=== PATIENT | male | born 1980 | race Caucasian/White ===

== ENCOUNTER 2016-07-30 15:41 | Inpatient (IN) | payer BC, OTHER ==
--- NOTE | ~2016-07-30 | CO ---
Unit #: [id number] #: [id number] Patient: JADON ADAIR [id number] [facility] [address]. [place], [place] [address] [id number] I MR#: [id number] NAME: JADON ADAIR ROOM: 318 Age: 36 Sex: M Admission Date: 07/30/2016 : 1980 Attending Physician: Carlos Veloz M.D. Primary Care Physician: Tanner Torrez M.D. Consultation Date: 07/31/2016 CONSULTATION REPORT CONSULTING PHYSICIAN Dr. Jorje Paul. REASON FOR CONSULT Occipital CVA. PATIENT IDENTIFICATION This is a 36-year-old right-handed male evaluated in room 318 at [facility]. SOURCE OF INFORMATION Obtained from the patient as well as the medical record. HISTORY OF PRESENT ILLNESS This is a 36-year-old right-handed male with a past medical history of hypertension, diabetes mellitus type 2, who presented to [facility] with complaints of headache, admitted for ischemic CVA and uncontrolled diabetes mellitus with a blood glucose of 677 on arrival. Patient states that he had an episode "at work" where he developed a headache and reports that he had flashing lights on the left side of his visual field while he was in a pressure-controlled room at work. He states that he continued to have a headache through the day and the next day he had noticed that he had peripheral visual field loss. This was, however, prior to the day of admission. He then presented on the day of admission with continued disturbance in the left peripheral visual field and underwent a MRI of the brain given his presentation which showed a 3 cm focal area of restricted diffusion in the parasagittal right occipital lobe involving the cortex and subcortical white matter characteristic of recent infarct or ischemia. There are also other subtle areas of restricted diffusion in the left frontal deep white matter but upon viewing the imaging with Dr. Mckinley personally, it looked like T2 shine through with no associated decreased (1) mapping. He has multifocal areas of punctate, increased T2 and FLAIR signal in the basal ganglia bilaterally, likely consistent with chronic ischemic changes. The patient reports persistent visual loss, reports his headache has improved. His blood sugars also improved. He denies exacerbating or alleviating factors or other associated speech or swallowing changes, focal weakness or paraesthesia, loss of consciousness, loss of awareness, shortness of air, chest pain, or palpitations. PAST MEDICAL HISTORY 1. Diabetes mellitus. 2. Hypertension. 3. Right hip surgery. Unit #: [id number] #: [id number] Patient: JADON ADAIR 4. The patient states that he was diagnosed with MS, that he saw a neurologist named Dr. Valderrama. Those records are not available. ALLERGIES No known drug allergies. HOME MEDICATIONS 1. Metformin. 2. Lisinopril. FAMILY HISTORY Positive for lung cancer and heart disease. SOCIAL HISTORY Positive for alcohol use. He denies abuse. He reports a remote history of drug use but reports he has not used drugs since early years. He denies ever using cocaine. He smokes about half pack per day of tobacco. REVIEW OF SYSTEMS A 12-point review of systems was done. Pertinent positives were as discussed above. PHYSICAL EXAMINATION VITAL SIGNS: Temperature 98.1. He has been afebrile. Pulse 80, respirations 18, blood pressure 138/101, oxygen saturation 97%. Height 5 feet 6 inches. Weight 200 pounds. BMI 32. NEUROLOGIC: He is awake, alert, and oriented to person, place, and time. No right/left confusion. No finger agnosia. General fund of knowledge is intact. CRANIAL NERVE: He demonstrates left temporal lower quadrant anopia. Extraocular movements are intact. Eyes are conjugate. Sensation of the face and scalp is equal. Strength of muscles of facial expression is equal. Hearing is intact to finger rub and conversation. Tongue is midline. Uvula is midline. Palate elevation is normal. Head turning and shoulder shrug is unremarkable. Neck is supple. MOTOR: Demonstrates normal bulk and tone. Strength is equal, 5/5 in all extremities. SENSORY: Intact to soft touch and pinprick sensation. GAIT: Normal. Romberg deferred. REFLEXES: A 1/4 toes are equivocal. COORDINATION: Unremarkable. DIAGNOSTIC STUDIES LABORATORY: Troponin 0.13 with a 0.14 max. Hemoglobin A1c 11.8. Sodium 135, potassium 3.4, chloride 102, CO2 of 28, glucose 349, BUN 25, creatinine 1.1, estimated GFR above 60. Cholesterol 199, triglycerides 152, LDL 138, HDL 31. White blood cell count 11, hemoglobin 14.7, hematocrit 42.2, platelet count 277,000. IMAGING: MRI of the brain: Please see above. CARDIOVASCULAR: EKG: Normal sinus rhythm, rightward axis. T-wave abnormality. Prolonged QT, per cardiology report on July 31, 2016. IMPRESSION 1. Acute to subacute right INFORMATION ENGINEER territory ischemic cerebrovascular accident with left lower quadrant anopia. 2. Left frontal deep white matter lesions, questionable past infarct. Unit #: [id number] #: [id number] Patient: JADON ADAIR 3. The patient states that he has right hemiparesis in the past about a year ago that lasted for about three days. He states that he saw his neurologist at that time but he does not have any further details or records. 4. Uncontrolled diabetes mellitus type 2. 5. Tobacco use. 6. Hypertension. PLAN Recommend a transesophageal echocardiogram and CT angiogram to look for etiology of stroke. Recommend stroke workup (2) . The patient has elevated LDL of 138, recommend statin. We have started the patient on Plavix. Further recommendations to be made pending workup and further clinical course. Please call for any questions or issues. Case discussed with Dr. Mckinley who saw the patient as well. Will follow along with you. Please call for any questions or issues. Thank you very much for allowing us to assist in the care of this patient. Dictated by... Petra Shaw A.P.R.N. for Adrian Armenta/saida TD: 08/01/2016 15:47 JOB #: [id number] CONSULTATION REPORT X Petra Shaw APRN X CONSULTATION REPORT
--- NOTE | ~2016-07-30 | MR18 ---
[facility] A Service of [facility] RADIOLOGY TEXT RESULTS PATIENT: JADON ADAIR LOCATION: C3A 318-01 : [birth year] UNIT #: [id number] AGE: [address]: Carlos Veloz MD SEX: M ORDER DR: [id number] [facility] [address] [place], [place] [address] [id number] I MR#: [id number] Acc #: [id number] NAME: JADON ADAIR : 1980 SEX: M STUDY DATE/TIME: 07/30/2016 17:41 UNIT: CEDOF ROOM: 77208 STUDY DESCRIPTION: MR Brain Wo Contrast Attending Physician: Donna Paul M.D. Ordering Physician: Kaia Guerrero Pa-C Primary Care Physician: Tanner Torrez M.D. MRI CENTER REPORT This report is preliminary unless electronic signature is present. EXAM MRI brain without contrast HISTORY Dizzy and blurred vision, onset 2 days ago. Loss of peripheral vision left eye. FINDINGS MRI brain was performed without contrast. There is a focal area of restricted diffusion in the medial right occipital lobe, involving cortex and subcortical white matter, measuring nearly 3 cm in maximal dimension, suspicious for acute infarct. I called this finding to the patient's nurse practitioner, Kaia, at the time of this dictation. There are also more subtle areas of restricted diffusion in the left frontal deep white matter, which measure less than 1 cm, and could be additional areas of recent ischemia or infarct. Several punctate foci of increased T2 and FLAIR signal in the bilateral basal ganglia, which could be secondary to chronic ischemic changes, with additional considerations including demyelinating disease or vasculitis. No midline shift or ventricular dilatation, focal atrophy or extraaxial fluid collection. There is opacification of the right maxillary sinus with mucosal thickening and fluid. IMPRESSION 1. 3 cm focal area of restricted diffusion in the parasagittal right occipital lobe involving cortex and subcortical white matter, characteristic of recent infarct or ischemia. 2. There are subtle areas of restricted diffusion, subcentimeter, in the left frontal deep white matter which could be additional recent ischemia or infarcts. 3. Multifocal areas of punctate increased T2 and FLAIR signal in the basal ganglia bilaterally. Considerations include chronic ischemic STS. [facility] A Service of [facility] RADIOLOGY TEXT RESULTS PATIENT: JADON ADAIR LOCATION: C3A 318-01 : [birth year] UNIT #: [id number] AGE: [address]: Carlos Veloz MD SEX: M ORDER DR: changes, or demyelinating disease or vasculitis in the appropriate clinical context. 4. No midline shift or ventricular dilatation. 5. I called the acute findings to the patient's nurse practitioner at the time of this dictation. Dictated by... Jose Dumont M.D. THIS IS AN ELECTRONICALLY VERIFIED REPORT Jose Dumont M.D. at 07/31/2016 2:15 PM DFL/psc TD: 07/30/2016 22:58 JOB #: [id number] MRI CENTER REPORT COPY
--- NOTE | ~2016-07-30 | HP ---
Unit #: [id number] #: [id number] Patient: JADON ADAIR [id number] [address] [place], [place] [address] [id number] I MR#: [id number] NAME: JADON ADAIR ROOM: 67663 Age: 36 Sex: M Admission Date: 07/30/2016 : 1980 Attending Physician: Donna Paul M.D. Primary Care Physician: Tanner Torrez M.D. HISTORY AND PHYSICAL CHIEF COMPLAINT Headache. HISTORY OF PRESENT ILLNESS The patient is a 36-year-old male with a history of hypertension and diabetes uncontrolled, brought to the emergency room complaining of headache for the last two days. The patient stated the patient has a headache, tension type, and is not like the usual migraine-type of headache. The patient also complains of a throbbing headache with loss of vision on the left side lateral peripheral field. The patient stated the patient started loss of the peripheral vision since yesterday afternoon. The patient had MRI of the brain that showed the patient's occipital lobe and ischemic areas in the basal ganglia and the left internal capsule. The patient's sugar was found to be in 600's and patient is being admitted for the above reasons. The patient denies any fever, chills, nausea or vomiting. The patient denies any chest pain, palpitations, short of breath. The patient stated the patient is not checking his sugars at home and the sugar was found to be 677 in the hospital. PAST MEDICAL HISTORY 1. History of diabetes, uncontrolled. 2. Hypertension. PAST SURGICAL HISTORY History of right hip surgery. HOME MEDICATIONS He is on: 1. Metformin. 2. Lisinopril. ALLERGIES No known drug allergies. SOCIAL HISTORY Positive for alcohol, drinking. Smokes half a pack of cigarettes daily. FAMILY HISTORY Positive for the lung cancer in the family and heart disease in the family. REVIEW OF SYSTEMS Fourteen point review of systems was performed and only pertinent positive findings are described above, remaining are negative. Unit #: [id number] #: [id number] Patient: JADON ADAIR PHYSICAL EXAMINATION GENERAL: The patient is lying on the bed, not in acute distress. VITALS: Temperature is 98.7, pulse 99, respiratory rate 16, blood pressure 143/87, sat'ing 100% at room air. HEAD: Atraumatic, normocephalic. EENT: Pupils equal, round, reactive to light and accommodation. Extraocular movements are intact. The patient has loss of left peripheral vision and patient has a complete hemianopsia of the left side. HEART: Regular rate and rhythm. ABDOMEN: Soft. Positive bowel sounds. NECK: Supple. No JVD. LUNGS: Decreased air entry at the bases. EXTREMITIES: No cyanosis, no clubbing. NEUROLOGICAL: The patient has equal strength. However, the patient has loss of the left peripheral vision and a left hemianopsia. PSYCH: Mood and affect are appropriate. DIAGNOSTIC STUDIES LABORATORY DATA: Glucose 677, BUN 31, creatinine 1.6, sodium 123, potassium 3.4, chloride 89, bicarb 23, calcium 8.6, AST 16, ALT 19, alkaline phosphatase 79, WBC 13.6, hemoglobin 16.1, hematocrit 46.3, platelets 293. UA shows more than 1000 glucose. IMAGING: MRI of the brain shows the occipital lobe infarct and infarct in the basal ganglia and left internal capsule. CARDIOVASCULAR: There is no EKG done. The patient has received only aspirin 81 mg and neurology has not been contacted. ASSESSMENT AND PLAN 1. Occipital cerebrovascular accident with ischemic areas in the basal ganglia and the left internal capsule. 2. Headaches. 3. Hyponatremia. 4. Hypokalemia. 5. Uncontrolled diabetes. Plan is to admit the patient to inpatient with telemetry. The patient will have a neuro consult with Dr. Mckinley for occipital CVA and the ischemic areas in the basal ganglia in the left internal capsule. The patient will be on high dose sliding scale and check the GAUTAM in the morning and serial troponins. Will check the lipid profile and hemoglobin A1c in the a.m. Further recommendations will follow as more lab results are available. Dictated by Adrian Campos Unit #: [id number] #: [id number] Patient: JADON ADAIR TD: 07/31/2016 06:03 JOB #: [id number] HISTORY AND PHYSICAL X X HISTORY AND PHYSICAL
--- NOTE | ~2016-07-30 | EKG ---
PATIENT: JADON ADAIR UNIT #: [id number] Ventricular Rate: 74 BPM Atrial Rate: 74 BPM P-R Interval: 168 ms QRS Duration: 116 ms Q-T Interval: 416 ms QTC Calculation(Bezet): 461 ms P [place]: 50 degrees Calculated R [place]: 73 degrees Calculated T [place]: 93 degrees Diagnosis Line: Normal sinus rhythm Diagnosis Line: T wave abnormality, consider anterolateral Diagnosis Line: ischemia Diagnosis Line: Prolonged QT Diagnosis Line: Abnormal ECG Diagnosis Line: When compared with ECG of 31-JUL-2016 07:14, Diagnosis Line: No significant change was found Diagnosis Line: Confirmed by NIRALI COTE MD ([id number]) on 08/02/2016 Diagnosis Line: 6:08:15 PM INTERPRETING MD: ROCAEL GARIBAY
--- NOTE | ~2016-07-30 | MR134 ---
[facility] A Service of [facility] RADIOLOGY TEXT RESULTS PATIENT: JADON ADAIR LOCATION: [facility] : [birth year] UNIT #: [id number] AGE: [address]: Carlos Veloz MD SEX: M ORDER DR: [id number] [facility] [address] [place], [place] [address] [id number] I MR#: [id number] Acc #: [id number] NAME: JADON ADAIR : 1980 SEX: M STUDY DATE/TIME: 08/01/2016 18:18 UNIT: C3A PCU ROOM: [facility] STUDY DESCRIPTION: MR MRA Neck Wo Contrast Attending Physician: Carlos Veloz M.D. Ordering Physician: Ju Mckinley M.D. Primary Care Physician: Tanner Torrez M.D. MRI CENTER REPORT This report is preliminary unless electronic signature is present. EXAM Cervical carotid MR angiogram, 08/01/2016 HISTORY Occipital infarct on 07/30/2016 TECHNIQUE Angiograph imaging was performed through the cervical carotid distribution utilizing 2-D tetg-or-vfdszz and 3-D MRA techniques. FINDINGS The great vessels are patent off the arch. Antegrade flow seen in both vertebral arteries and the vertebrals are approximately the same size. Both bifurcations are widely patent. There is no evidence of stenosis by NASCET criteria and no flow disturbance is seen. IMPRESSION Normal. Dictated by... Timmy Alcocer M.D. THIS IS AN ELECTRONICALLY VERIFIED REPORT Timmy Alcocer M.D. at 08/02/2016 5:48 AM ERNESTO/axel TD: 08/01/2016 23:57 JOB #: [id number] MRI CENTER REPORT [facility] A Service [facility] RADIOLOGY TEXT RESULTS PATIENT: JADON ADAIR LOCATION: [facility] : [birth year] UNIT #: [id number] AGE: [address]: Carlos Veloz MD SEX: M ORDER DR: CLIFF
--- NOTE | ~2016-07-30 | MR122 ---
[facility] A Service of [facility] RADIOLOGY TEXT RESULTS PATIENT: JADON ADAIR LOCATION: [facility] : [birth year] UNIT #: [id number] AGE: [address]: Carlos Veloz MD SEX: M ORDER DR: [id number] [facility] [address] [place], [place] [address] [id number] I MR#: [id number] Acc #: [id number] NAME: JADON ADAIR : 1980 SEX: M STUDY DATE/TIME: 08/01/2016 18:07 UNIT: [address] ROOM: [facility] STUDY DESCRIPTION: MR MRA Head Wo Contrast Attending Physician: Carlos Veloz M.D. Ordering Physician: Ju Mckinley M.D. Primary Care Physician: Tanner Torrez M.D. MRI CENTER REPORT This report is preliminary unless electronic signature is present. EXAM Intracranial MR angiogram HISTORY Occipital infarct on 07/30/2016. TECHNIQUE MR angiographic imaging was performed from the skull base to the [place] of [place]. FINDINGS In the posterior circulation, both vertebral arteries are patent distally, with the right larger than left. The basilar artery is widely patent. No posterior cerebral artery occlusive disease is seen. In the anterior circulation, both carotid siphons are widely patent. There is no evidence of aneurysm, vascular malformation or major branch vessel occlusion. As a normal variant, the right A1 segment is hypoplastic and both anterior cerebral arteries fill predominantly from the left. IMPRESSION Normal. Dictated by... Timmy Alcocer M.D. THIS IS AN ELECTRONICALLY VERIFIED REPORT Timmy Alcocer M.D. at 08/02/2016 5:48 AM RLF/irving TD: 08/01/2016 23:54 [facility] A Service of [facility] RADIOLOGY TEXT RESULTS PATIENT: JADON ADAIR LOCATION: [facility] : [birth year] UNIT #: [id number] AGE: [address]: Carlos Veloz MD SEX: M ORDER DR: JOB #: [id number] MRI CENTER REPORT COPY
--- NOTE | ~2016-07-30 | EKG ---
PATIENT: JADON ADAIR UNIT #: [id number] Ventricular Rate: 83 BPM Atrial Rate: 83 BPM P-R Interval: 158 ms QRS Duration: 104 ms Q-T Interval: 430 ms QTC Calculation(Bezet): 505 ms P [place]: 58 degrees Calculated R [place]: 102 degrees Calculated T [place]: 130 degrees Diagnosis Line: Normal sinus rhythm Diagnosis Line: Rightward axis Diagnosis Line: T wave abnormality, consider anterolateral Diagnosis Line: ischemia Diagnosis Line: Prolonged QT Diagnosis Line: Abnormal ECG Diagnosis Line: No previous ECGs available Diagnosis Line: Confirmed by VICTOR MANUEL WU MD ([id number]) on Diagnosis Line: 07/31/2016 2:56:32 PM INTERPRETING MD: BRYCE GARIBAY
--- NOTE | ~2016-07-30 | CO ---
Unit #: [id number] #: [id number] Patient: JADON ADAIR [id number] [address] [place], [place] [address] [id number] I MR#: [id number] NAME: JADON ADAIR ROOM: 318 Age: Sex: M Admission Date: 07/30/2016 : 1980 Attending Physician: Carlos Veloz M.D. Primary Care Physician: Tanner Torrez M.D. CONSULTATION REPORT REASON FOR CONSULT Management of diabetes mellitus, uncontrolled. HISTORY OF PRESENT ILLNESS A 36-year-old male who has a history of hypertension, diabetes mellitus, presented to the emergency room for a chief complaint of headaches of two days duration which are persistent associated with some vision loss. He had MRI brain which showed a 3 cm focal area of recent infarct in the occipital lobe. On his admission, his blood glucose was over 600. The patient reports he checks only when he is not feeling well. His A1C is 11.8. He takes Metformin at home. PAST MEDICAL HISTORY Type 2 diabetes mellitus, hypertension. PAST SURGICAL HISTORY Right hip surgery. SOCIAL HISTORY Positive for alcohol drinking. He smokes a half pack per day. FAMILY HISTORY Positive for lung cancer. ALLERGIES No known drug allergies. MEDICATIONS 1. Metformin. 2. Lisinopril. REVIEW OF SYSTEMS A 10-point review of systems is completed. No chest pain, palpitation. No shortness of air. No cough with sputum. No (1) frequency, dysuria. No nausea, vomiting, abdominal pain. A 10-point review of systems was unremarkable. PHYSICAL EXAMINATION GENERAL APPEARANCE: Awake, alert, oriented to time, place and person. VITAL SIGNS: Temperature 98.1. Pulse 85. Blood pressure 138/101. HEENT: EOMI. Pupils equal and reactive to light. NECK: Supple. No thyromegaly noted. CHEST: Good air entry. Unit #: [id number] #: [id number] Patient: JADON ADAIR CARDIOVASCULAR: Regular rhythm. No murmurs. ABDOMEN: Soft, nontender. Bowel sounds positive. EXTREMITIES: No edema. Ulcers are noted. DIAGNOSTIC STUDIES LABORATORY: Labs were reviewed. Glucose 349, creatinine 1.1, potassium 3.4. A1C is 11.8. LDL is 138. Hemoglobin 14.7, hematocrit 42.2. ASSESSMENT 1. Type 2 diabetes mellitus poorly controlled. 2. CVA occipital lobe. 3. Hypertension. PLAN 1. I will start the patient on Levemir 13 units at bedtime. 2. NovoLog 10 units each meal plus cover with supplemental insulin as needed. 3. Get a Nutrition consult. Thanks again for consultation. We will continue to follow the patient for further insulin adjustments. Dictated by... Adrian Mayen/ana TD: 08/01/2016 09:10 JOB #: [id number] CONSULTATION REPORT X Luis Bucio MD X CONSULTATION REPORT
--- NOTE | ~2016-07-30 | DS ---
Unit #: [id number] #: [id number] Patient: JADON ADAIR [id number] [facility] [address] [facility] [place], [place] [address] [id number] I MR#: [id number] NAME: JADON ADAIR ROOM: 318 Age: 36 Sex: M Admission Date: 07/30/2016 : 1980 Discharge Date: 08/03/2016 Attending Physician: Carlos Veloz M.D. Primary Care Physician: Tanner Torrez M.D. DISCHARGE SUMMARY REASON FOR ADMISSION Please see H and P for complete details of initial part of hospital course. Patient was subsequent admitted secondary to occipital CVA. Consultation was placed in neurology services and followed the patient through hospital course. 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 They followed the patient throughout, patient also underwent 2D echocardiogram as well as GAUTAM and did not show any embolic etiology. The patient also had a prior history of type 1 diabetes, very poorly controlled hemoglobin A1c greater than 11%. Endocrinology services were consulted. Dr. Bucio followed patient throughout. Cardiology services were also consulted. [facility] cardiology followed the patient throughout his hospital course. Ejection fraction was noted to be 60% on GAUTAM. Cardiac catheterization was recommended secondary to high risk factors including poorly controlled diabetes, tobacco abuse, as well as CVA. The patient underwent cardiac catheterization yesterday, which revealed severe three vessel disease. From a cardiac standpoint, Dr. Kumar felt as though since he was asymptomatic he could be discharged to home with stent placement, perhaps to reschedule in the next one to two weeks. He does have a followup appointment on , 08/17/2016 at 1:[address] Kumar. At that point time, if cleared by neurology services for stent placement, catheterization will be performed. At the present time he is currently stable, appears stable to be discharged home. Will discharge him home with a close outpatient followup. FINAL DISCHARGE DIAGNOSES 1. Acute/subacute cerebrovascular accident occipital region. 2. Visual/peripheral visual loss on the left eye. 3. Diabetes type 2, poorly controlled. 4. Severe three vessel disease. 5. Coronary artery disease. 6. Tobacco abuse. 7. Poorly controlled hypertension. FINAL DISCHARGE MEDICATIONS 1. Metformin 500 mg p.o. daily. 2. Tylenol 650 mg p.o. q.6 p.r.n. 3. NovoLog 6 units t.i.d. with meals. 4. Plavix 75 mg p.o. daily. Unit #: [id number] #: [id number] Patient: JADON ADAIR 5. Sublingual nitro as directed. 6. Lopressor 50 mg p.o. b.i.d. 7. Lasix 20 mg p.o. daily. 8. Lipitor 80 mg p.o. q.h.s. 9. Zestril 20 mg p.o. daily. 10. Levemir 40 units subcu b.i.d. DISCHARGE CONDITION Stable. DISCHARGE DISPOSITION Home. FOLLOWUP Dr. Cecily Alvarez at [facility], , in approximately seven to ten days. Dictated by... Adrian Colin/sumi TD: 08/04/2016 11:59 JOB #: [id number] DISCHARGE SUMMARY X Risa Wing MD X DISCHARGE SUMMARY
--- NOTE | ~2016-07-30 | CO ---
Unit #: [id number] #: [id number] Patient: JADON ADAIR [id number] [address] [place], [place] [address] [id number] MR#: [id number] NAME: JADON ADAIR ROOM: 318 Age: 36 Sex: M Admission Date: 07/30/2016 : 1980 Attending Physician: Carlos Veloz M.D. Primary Care Physician: Tanner Torrez M.D. CONSULTATION REPORT REASON FOR CONSULTATION Elevated troponin. HISTORY OF PRESENT ILLNESS This is a 36-year-old white male who was admitted with left sided weakness, flashes of light and loss of peripheral vision. He has been complaining of headache which he thought was a migraine. There was no slurred speech or unilateral weakness. He came in to the emergency room for evaluation where he was found to have an occipital infarct. There was elevation of his blood pressure of 157/113 mmHg. He has known hypertension for the past 20 years. Has been diagnosed with diabetes ten years ago. He does drink on occasion and smokes daily. He thinks he is reasonably active where he has no symptoms of angina. His troponin elevated at 0.14. Electrocardiogram shows anterolateral ischemic changes. PAST MEDICAL HISTORY 1. Hypertension. 2. Diabetes mellitus type 2. 3. Nicotine abuse. 4. Occasional ETOH use. PAST SURGICAL HISTORY Right hip surgery. SOCIAL HISTORY The patient works at [employer]. He states he is reasonably active on his job where he has no symptoms of angina. He smokes a half pack of cigarettes daily since he was a teenager. Drinks alcohol on occasion socially. No illicit drug use. FAMILY HISTORY Parents and siblings have no heart disease; however, he has grandparents who have coronary artery disease. ALLERGIES No known drug allergies. HOME MEDICATIONS 1. Metformin 500 mg b.i.d. 2. Lisinopril, unknown dose. REVIEW OF SYSTEMS CONSTITUTIONAL: Negative for fever or chills. Reports no weight gain or weight loss. Unit #: [id number] #: [id number] Patient: JADON ADAIR HEENT: Positive for headache. No difficulty with swallowing. Reports visual disturbances. CARDIOVASCULAR: Has no symptoms of angina. Denies palpitations. No paroxysmal nocturnal dyspnea or orthopnea. Denies syncope or near syncope. RESPIRATORY: Negative for dyspnea, cough or hemoptysis. GASTROINTESTINAL: No abdominal pain, nausea or vomiting. No constipation or melena. EXTREMITIES: Negative for lower extremity edema. PHYSICAL EXAMINATION VITAL SIGNS: Blood pressure 150/107, heart rate 78, temperature 98.1, BMI 32. GENERAL: This is a pleasant, obese, 36-year-old white male who is in no acute respiratory distress. NEUROLOGICAL: He is awake, alert and oriented. There are no motor deficits. Has loss of left peripheral vision. HEART: S1, S2 heart sounds are normal. No murmurs, rubs or clicks. Regular rate and rhythm. ABDOMEN: Soft, nontender with bowel sounds present. EXTREMITIES: Without leg edema. SKIN: Warm and dry. DIAGNOSTIC STUDIES LABORATORY: Glucose 349, BUN 25, creatinine 1.1, sodium 135, potassium 3.4. CK total 22, troponin 0.12 to 0.14 to 0.13. Cholesterol 199, triglycerides 152, LDL 138, HDL 31. White count 11.0, hemoglobin 14.7, hematocrit 42.2, platelet count 277. IMAGING: Chest x-ray shows no active disease. MRI of the brain shows 3 cm focal area in the parasagittal right occipital lobe characteristic of recent infarct or ischemia. CARDIOVASCULAR: Electrocardiogram shows normal sinus rhythm, rate 83 beats per minute with right axis deviation. There is left atrial enlargement and anterolateral ischemic changes. IMPRESSION 1. Occipital infarct secondary to cerebrovascular accident. 2. Poorly controlled diabetes mellitus. 3. Poorly controlled hypertension. 4. Probable coronary artery disease with anterolateral ischemia. 5. Nicotine abuse. 6. Obesity. PLAN 1. Cardiology was consulted for elevated troponin. Repeat cardiac enzymes, troponin and electrocardiogram. 2. The patient may need a cardiac catheterization to evaluate coronary artery disease. 3. Will obtain 2D echocardiogram to evaluate left ventricular systolic function. 4. Antiplatelet therapy when allowed by neurology. 5. Control blood pressure with addition of metoprolol and decrease dose of lisinopril and addition of diuretic with hydrochlorothiazide. 6. Start on statin because of elevated LDL and possible coronary artery disease. 7. Will treat with aspirin. Unit #: [id number] #: [id number] Patient: JADON ADAIR 8. Control diabetes. 9. Will follow the patient with you. Thank you for allowing us to assist with this patient's care. Dictated by... Travon Yepez A.P.R.N. for Adrian Lawson/brie TD: 08/01/2016 09:12 JOB #: [id number] CONSULTATION REPORT X Travon Yepez APRN X CONSULTATION REPORT
--- NOTE | ~2016-07-30 | CR63 ---
[facility] A Service of [facility] & [facility] RADIOLOGY TEXT RESULTS PATIENT: JADON ADAIR LOCATION: [facility] 318- : [birth year] UNIT #: [id number] AGE: [address]: Carlos Veloz MD SEX: M ORDER DR: [id number] [facility] [address] [place], [place] [address] [id number] MR#: [id number] Acc #: [id number] NAME: JADON ADAIR : 1980 SEX: M STUDY DATE/TIME: 07/31/2016 12:59 UNIT: [address] ROOM: [facility] STUDY DESCRIPTION: CR Chest 2 View Attending Physician: Carlos Veloz M.D. Ordering Physician: Trey Kumar M.D. Primary Care Physician: Tanner Torrez M.D. MEDICAL IMAGING REPORT This report is preliminary unless electronic signature is present EXAM PA and lateral chest 07/31/2016 INDICATIONS 36-year-old male with shortness of breath since yesterday. COMPARISON STUDIES No comparisons. FINDINGS The lungs are well expanded and clear. Heart size normal. Visualized osseous structures unremarkable. IMPRESSION Negative chest. Dictated by... Pepe Nice M.D. THIS IS AN ELECTRONICALLY VERIFIED REPORT Pepe Nice M.D. at 08/01/2016 7:59 AM PHILLIP/rylee TD: 07/31/2016 16:51 JOB #: [id number] MEDICAL IMAGING REPORT COPY
--- NOTE | ~2016-07-30 | A ---
[facility] Nutrition Therapy DATE: 08/01/16 Patient: JADON ADAIR Physician: KIERAN Address: [address] Room/Bed: [address] [place] [address], Zip: [place] [address] Admit Date: 07/30/16 Date of : [birth year] Height: 5 6 Weight: 197 89.4 NUTRITIONAL ASSESSMENT: REASON: CONSULT RE: DIET EDUCATION PT IS 36 Y.O. MALE ADMITTED FOR OCCIPTIAL CVA HT: 5'6", WT: 220# (100 KG), BMI: 35.5 RD PROVIDED WRITTEN AND VERBAL CC DIET EDUCATION. RD PROVIDED LIST OF FOODS TO AVOID/LIMIT AND FOODS TO EAT MORE OFTEN. RD ALSO EMPHASIZED IMPORTANCE OF CONSISTENT MEAL PATTERN DAILY. PT REPORTS SKIPPING BREAKFAST AND CONSUMES ONLY [address] PROVIDED HEALTHY BREAKFAST OPTIONS AND BRAINSTORMED WAYS TO INCORPORATE BREAKFAST INTO HIS DAILY ROUTINE. PT ALSO REPORTS DRINKING A "LOT OF ENERGY DRINKS". RD PROVIDED HEALTHIER LOW-CALORIE DRINK OPTIONS. PT VERBALIZED UNDERSTANDING OF THE TOPIC AND REPORTED NO DIET QUESTIONS AT THIS TIME. RD TO REMAIN AVAILABLE. Recommendations: 1. ENCOURAGE COMPLIANCE OF CURRENT DIET ORDER ORDER-CC RD WILL F/U PER PROTOCOL Respectfully, ABEL ROQUE MS, RD, LD [employer] cc: client file
[~2016-07-30 15:41] MED LIST: GLUCOPHAGE500 MG PO
[2016-07-30 16:02] LABS: BASOPHIL# 0.1 X10e3 (0-0.3); BASOPHIL% 0.4 % (0-2.5); EOSINOPHIL% 0.3 % (0.0-7.0); HEMATOCRIT 46.3 % (38.0-50.0); HEMOGLOBIN 16.1 gm/dL (13.0-16.0); LYMPHOCYTE# 2.7 X10e3 (1.0-3.5); LYMPHOCYTE% 19.8 % (17.0-45.0); MEAN CELL VOLUME 88.7 FL (83-96); MEAN CORPUSCULAR HEMOGLOBIN 30.8 PG (28-34); MEAN CORPUSCULAR HGB CONC 34.7 g/dL (30-36); MEAN PLATELET VOLUME 8.4 FL (6.5-11.5); MONOCYTE# 1.4 X10e3 (0-1.0); MONOCYTE% 10.4 % (3.0-12.0); NEUTROPHIL# 9.4 X10e3 (1.5-7.1); NEUTROPHIL% 69.1 % (40-75); PLATELET COUNT 293 X10e3 (140-420); RED BLOOD COUNT 5.22 X10e (3.90-5.60); RED CELL DISTRIBUTION WIDTH 12.6 % (11.0-15.5); WHITE BLOOD COUNT 13.6 X10e3 (4.0-10.5)
[2016-07-30 16:04] LABS: DIFF IND NO
[2016-07-30 16:25] LABS: BILIRUBIN,TOTAL 1.1 mg/dL (0.2-2.0); BUN/CREATININE RATIO 19.37; CALCIUM SERUM 8.6 mg/dL (8.4-10.2); CREATININE SERUM 1.6 mg/dL (0.6-1.4); GLOM FILT RATE Estimated 52.2 mL/min (>60); POTASSIUM 3.4 mmol/L (3.5-5.1); PROTEIN TOTAL SERUM 6.9 g/dL (6.0-8.3)
[2016-07-30 16:48] LABS: URINE SOURCE CLEAN CATCH
[2016-07-30 16:54] LABS: URINE APPEARANCE CLEAR; URINE BILIRUBIN NEG (NEG); URINE BLOOD NEG (NEG); URINE COLOR YELLOW; URINE GLUCOSE >1000 MG/DL (NEG); URINE KETONE 1+ (NEG); URINE LEUKOCYTE ESTERASE NEG (NEG); URINE NITRATE NEG (NEG); URINE PROTEIN NEG (NEG); URINE SPECIFIC GRAVITY 1.028 (1.003-1.035); URINE UROBILINOGEN 0.2 MG/DL (NEG)
[2016-07-30 16:59] LABS: CULTURE INDICATED? NO
[2016-07-30] MEDS ORDERED: METFORMIN HCL500 M2 PO (21:45)
[2016-07-31 02:02] LABS: BASOPHIL# 0.1 X10e3 (0-0.3); BASOPHIL% 0.8 % (0-2.5); EOSINOPHIL# 0.2 X10e3 (0-0.7); EOSINOPHIL% 1.4 % (0.0-7.0); HEMATOCRIT 42.2 % (38.0-50.0); HEMOGLOBIN 14.7 gm/dL (13.0-16.0); LYMPHOCYTE# 2.9 X10e3 (1.0-3.5); LYMPHOCYTE% 26.4 % (17.0-45.0); MEAN CELL VOLUME 88.1 FL (83-96); MEAN CORPUSCULAR HEMOGLOBIN 30.7 PG (28-34); MEAN CORPUSCULAR HGB CONC 34.8 g/dL (30-36); MEAN PLATELET VOLUME 8.2 FL (6.5-11.5); MONOCYTE# 1.1 X10e3 (0-1.0); MONOCYTE% 10.4 % (3.0-12.0); NEUTROPHIL# 6.7 X10e3 (1.5-7.1); PLATELET COUNT 277 X10e3 (140-420); RED BLOOD COUNT 4.79 X10e (3.90-5.60); RED CELL DISTRIBUTION WIDTH 12.7 % (11.0-15.5)
[2016-07-31 02:16] LABS: CK TOTAL 38 IU/L (36-174)
[2016-07-31 02:22] LABS: DIFF IND NO
[2016-07-31 02:33] LABS: BLOOD UREA NITROGEN 25 mg/dL (9-23); BUN/CREATININE RATIO 22.72; CALCIUM SERUM 8.7 mg/dL (8.4-10.2); CARBON DIOXIDE 28 mmol/L (22-31); CHLORIDE 102 mmol/L (100-111); CHOLESTEROL 199 mg/dL (0-200); CREATININE SERUM 1.1 mg/dL (0.6-1.4); GLOM FILT RATE Estimated ABOVE60 mL/min (>60); GLUCOSE FASTING 349 mg/dL (70-110); HDL CHOLESTEROL 31 mg/dL (29-75); LDL/HDL RATIO 4 RATIO (0-4); POTASSIUM 3.4 mmol/L (3.5-5.1); TRIGLYCERIDES 152 mg/dL (10-160)
[2016-07-31 02:34] LABS: LDL CHOLESTEROL 138 mg/dL (-130); SODIUM 135 mmol/L (135-145)
[2016-07-31] MEDS ORDERED: LISINOPRIL PO (07:27)
[2016-07-31 08:35] LABS: CK TOTAL 37 IU/L (36-174)
[2016-07-31] MEDS ORDERED: PRINIVIL20 M1 PO (08:48)
[2016-07-31 10:38] LABS: CK TOTAL 36 IU/L (36-174)
[2016-07-31 14:58] LABS: CK TOTAL 42 IU/L (36-174)
[2016-08-01 05:28] LABS: HEMATOCRIT 41.5 % (38.0-50.0); HEMOGLOBIN 14.3 gm/dL (13.0-16.0); MEAN CELL VOLUME 88.4 FL (83-96); MEAN CORPUSCULAR HEMOGLOBIN 30.4 PG (28-34); MEAN CORPUSCULAR HGB CONC 34.4 g/dL (30-36); MEAN PLATELET VOLUME 8.6 FL (6.5-11.5); RED BLOOD COUNT 4.69 X10e (3.90-5.60); RED CELL DISTRIBUTION WIDTH 12.8 % (11.0-15.5); WHITE BLOOD COUNT 10.6 X10e3 (4.0-10.5)
[2016-08-01 06:50] LABS: BLOOD UREA NITROGEN 18 mg/dL (9-23); CALCIUM SERUM 8.9 mg/dL (8.4-10.2); CARBON DIOXIDE 30 mmol/L (22-31); CHLORIDE 101 mmol/L (100-111); GLOM FILT RATE Estimated ABOVE60 mL/min (>60); GLUCOSE FASTING 265 mg/dL (70-110); POTASSIUM 3.4 mmol/L (3.5-5.1); SODIUM 135 mmol/L (135-145)
[2016-08-02 05:52] LABS: HEMATOCRIT 41.9 % (38.0-50.0); HEMOGLOBIN 14.4 gm/dL (13.0-16.0); MEAN CELL VOLUME 88.3 FL (83-96); MEAN CORPUSCULAR HEMOGLOBIN 30.4 PG (28-34); MEAN CORPUSCULAR HGB CONC 34.4 g/dL (30-36); MEAN PLATELET VOLUME 8.5 FL (6.5-11.5); RED BLOOD COUNT 4.75 X10e (3.90-5.60); RED CELL DISTRIBUTION WIDTH 12.4 % (11.0-15.5)
[2016-08-02 06:15] LABS: PARTIAL THROMBOPLASTIN TIME 25.1 SECONDS (23.5-31.3); PROTHROMBIN TIME (PATIENT) 10.7 SECONDS (9.6-11.5)
[2016-08-02 06:50] LABS: BLOOD UREA NITROGEN 13 mg/dL (9-23); BUN/CREATININE RATIO 14.44; CALCIUM SERUM 8.8 mg/dL (8.4-10.2); CARBON DIOXIDE 24 mmol/L (22-31); CHLORIDE 102 mmol/L (100-111); CREATININE SERUM 0.9 mg/dL (0.6-1.4); GLOM FILT RATE Estimated ABOVE60 mL/min (>60); GLUCOSE FASTING 278 mg/dL (70-110); POTASSIUM 3.5 mmol/L (3.5-5.1); SODIUM 134 mmol/L (135-145)
[2016-08-02 19:51] LABS: FOLATE (FOLIC ACID) 21.9 ng/mL (>5.8)
[2016-08-03 07:07] LABS: BLOOD UREA NITROGEN 14 mg/dL (9-23); CARBON DIOXIDE 26 mmol/L (22-31); CHLORIDE 104 mmol/L (100-111); CREATININE SERUM 0.7 mg/dL (0.6-1.4); GLOM FILT RATE Estimated ABOVE60 mL/min (>60); GLUCOSE FASTING 95 mg/dL (70-110); POTASSIUM 3.6 mmol/L (3.5-5.1); SODIUM 138 mmol/L (135-145)
[2016-08-03] MEDS ORDERED: MR XX ×3 (10:40→12:04)
[2016-08-03] MEDS ORDERED: GLUCOPHAGE XR500 MG PO (13:52)
[2016-08-03] MEDS ORDERED: PAIN RELIEF325 M1 PO (13:55)
[2016-08-03] MEDS ORDERED: LEVEMIR FL100 UNIT/1 SUBQ (13:59)
[2016-08-03] MEDS ORDERED: NOVOLOG FL100 UNIT/1 SUBQ (14:01)
[2016-08-03] MEDS ORDERED: CLOPIDOGREL75 MG PO (14:03)
[2016-08-03] MEDS ORDERED: NITROGLYGERIN0.4 MG SL (14:05)
[2016-08-03] MEDS ORDERED: NICOTINE TRANSDE7 MG EXT (14:06)
[2016-08-03] MEDS ORDERED: LOPRESSOR PO (14:07)
[2016-08-03] MEDS ORDERED: LASIX20 MG PO (14:08)
[2016-08-03] MEDS ORDERED: LIPITOR80 MG PO (14:09)
[2016-08-03] MEDS ORDERED: IMDUR-ER30 M1 PO (14:10)
[2016-08-04 22:29] LABS: PROTEIN C ACTIVITY 176 % (70-180); PROTEIN S 131 % (70-150)
[2016-08-08 10:44] LABS: ANA SCREEN Negative (Negative); CARDIOLIPIN IGG (LUPUS) <14 GPL (<=14); CARDIOLIPIN IGM (LUPUS) <12 MPL (<=12); DRVVT MIX INTERP (LUPUS) Not Indicated (()); INR LUPUS 1.1 (()); PROTROMBIN TIME LUPUS 11.5 sec (9.0-11.5); PT (LA MIX STUDY) 11.5 sec (<=11.5); PTT-LA 33 sec (<=40); PTT-LA SCREEN (LUPUS) 33 sec (<=40); THROMBIN TIME LUPUS 18 sec (13-19); dRVVT SCREEN (LUPUS) 39 sec (<=45)
== END 2016-08-03 15:43 | disposition home or self-care (01) | DRG 65 ==
LOC: CED 15:41 → CEDOF 20:31 → C3A PCU 07-31 08:27
PROVIDERS: Emergency Medicine; Internal Medicine; Internal Medicine Cardiovascular Disease; Physician Assistant Medical; Psychiatry & Neurology Neurology
PROC: B24BZZ4 Ultrasonography of Heart with Aorta, Transesophageal (ICD-10-PCS; principal; 2016-08-01)
PROC: 4A023N7 Measurement of Cardiac Sampling and Pressure, Left Heart, Percutaneous Approach (ICD-10-PCS; 2016-08-02)
PROC: B215YZZ Fluoroscopy of Left Heart using Other Contrast (ICD-10-PCS; 2016-08-02)
PROC: B211YZZ Fluoroscopy of Multiple Coronary Arteries using Other Contrast (ICD-10-PCS; 2016-08-02)
DX: I63.531 Cerebral infarction due to unspecified occlusion or stenosis of right posterior cerebral artery (principal); E87.1 Hypo-osmolality and hyponatremia; E11.65 Type 2 diabetes mellitus with hyperglycemia; I10 Essential (primary) hypertension; H53.462 Homonymous bilateral field defects, left side; I25.10 Atherosclerotic heart disease of native coronary artery without angina pectoris; F17.200 Nicotine dependence, unspecified, uncomplicated; Z79.01 Long term (current) use of anticoagulants; E87.6 Hypokalemia; Z79.4 Long term (current) use of insulin; E66.9 Obesity, unspecified
CPT/HCPCS: 36415; 70544; 70547; 70551; 71020; 80048; 80053; 80061; 81003; 81240; 81241; 81291; 82550; 82607; 82746; 82947; 83036; 83090; 83735; 84443; 84484; 85025; 85027; 85303; 85306; 85610; 85613; 85670; 85730; 86038; 86039; 86147; 93005; 93312; 94760; 96360; 96361; 99285; C1769; C1887; C1894; J1644; J1815; J2250; J3010